=== PATIENT | female | born 1940 | race African-American/Black ===

== ENCOUNTER 2016-10-07 19:44 | Emergency (ER) | payer BC, MEDICARE, OTHER ==
[~2016-10-07] VITALS: Ht 175.3 cm; Wt 45.0 kg
[2016-10-07 19:50] VITALS: BP 167/71
[2016-10-07] MEDS ORDERED: BACITRACIN ZINC OINT UDPKT TOP ONE (21:00)
[2016-10-07] MEDS ORDERED: LIDOCAINE HCL 1% 20ML VIAL (Pyxis) INJ MC ONE (21:15)
== END 2016-10-07 23:51 | disposition home or self-care (01) ==
LOC: ER 22:30
DX: S01.81XA Laceration without foreign body of other part of head, initial encounter (principal); S00.83XA Contusion of other part of head, initial encounter; S60.211A Contusion of right wrist, initial encounter; F17.200 Nicotine dependence, unspecified, uncomplicated; Z88.5 Allergy status to narcotic agent; Z88.0 Allergy status to penicillin; W01.0XXA Fall on same level from slipping, tripping and stumbling without subsequent striking against object, initial encounter; Y93.01 Activity, walking, marching and hiking; Y92.480 Sidewalk as the place of occurrence of the external cause; Y99.8 Other external cause status
CPT/HCPCS: 12011; 70450; 99284; J3490; Z7610

== ENCOUNTER 2016-10-11 08:52 | Emergency (ER) | payer BC, MEDICARE ==
[~2016-10-11] VITALS: Ht 175.3 cm; Wt 61.0 kg
[2016-10-11 11:08] VITALS: BP 128/90
== END 2016-10-11 11:37 | disposition home or self-care (01) ==
LOC: ER 10:18
DX: S01.81XD Laceration without foreign body of other part of head, subsequent encounter (principal); Z88.0 Allergy status to penicillin; Z88.5 Allergy status to narcotic agent; X58.XXXD Exposure to other specified factors, subsequent encounter; Y92.89 Other specified places as the place of occurrence of the external cause; Y99.8 Other external cause status
CPT/HCPCS: 99283; Z7610